=== PATIENT | female | born 1995 | race Caucasian/White ===

== ENCOUNTER 2018-07-20 21:10 | Emergency (ER) | payer OTHER ==
[2018-07-20] MEDS ORDERED: NS 1,000 ML IV ONE (21:40)
[2018-07-20] MEDS ORDERED: ONDANSETRON 4 MG/2 ML VIAL IVP ONE (21:40)
--- NOTE | 2018-07-20 21:40 | EDPHY ---
General Time Seen by Provider: 07/20/18 21:31 Narrative: CHIEF COMPLAINT: Abdominal pain HISTORY OF PRESENT ILLNESS: Patient presents by private vehicle with complaints of abdominal pain. She says the symptoms started around 12:00 p.m. Today. She points the epigastrium and periumbilical abdomen. She rates it as a mtvf-[id number]-imtdvwhp pain, currently 5 /10. Associated with nausea but no vomiting. She has 1 episode of diarrhea. She feels that her energy is very low. Her appetite is low. No fever chills. No urinary complaints. No chest pain, cough, shortness of breath, neck pain or stiffness, headache. She has no trauma or injury. She does have some mild pelvic discharge but denies any sexual activity since February. She had an IUD placed over a month ago. She has no other associated complaints or modifying factors. REVIEW OF SYSTEMS: 10 systems were reviewed and negative with the exception of the elements mentioned in the history of present illness. PCP: Located in [place] SPECIALISTS: None locally. Gynecology in [place] PAST MEDICAL HISTORY: Uncomplicated. PAST SURGICAL HISTORY: No surgical history SOCIAL HISTORY: Nonsmoker. Lives independently. Originally from [place] FAMILY HISTORY: Noncontributory EXAMINATION: Vitals: Triage VS reviewed General Appearance: Alert, no distress. Conversing in full sentences. Well appearing. Head: normocephalic, atraumatic Eyes: Pupils equal and round, no conjunctival pallor or injection ENT, Mouth: Mucous membranes moist. Airway patent Neck: Normal inspection, supple, non-tender Respiratory: Lungs are clear to auscultation Cardiovascular: Regular rate and rhythm. No murmur Gastrointestinal: Abdomen is soft and nondistended. Mild tenderness in the epigastrium with moderate tenderness to the periumbilical region. No tympany rigidity. No guarding. Negative obturator. Bowel sounds present all 4 quadrants. No palpable mass. No CVA tenderness. Neurological: A&O, nonfocal, normal gait Skin: Warm and dry, no rash Extremities: Nontender, no pedal edema Psychiatric: Mood and affect normal DIFFERENTIAL DIAGNOSES: Including but not limited to pancreatitis, gastritis, appendicitis, colitis, mesenteric adenitis MDM: 9:30 p.m. Acute abdominal pain at the 12:00 p.m. Today with tenderness in the periumbilical abdomen and mild tenderness in the epigastrium. No peritonitis at this time. She does have normal vital signs without any SIRS criteria. She is not actively vomiting. She is in no acute distress. IV has been established. I have ordered laboratory studies, IV fluid and nausea medication. She is declining pain medication at this time. 10:05 p.m. Laboratory studies reveal mild leukocytosis. LFTs normal. Lipase normal. I have re-evaluated the patient she still has moderate periumbilical tenderness. I do feel it is reasonable to proceed with CT scan abdomen pelvis. She has verbally consented to this. She still declines pain medication. 11:25 p.m. Case discussed with radiologist. We discussed the CT findings of the abdomen pelvis. No appendicitis. Patient has been re-evaluated. She says she is starting to feel better. We discussed the moderate constipation on the CT scan. We discussed ggoc-owz-hzgxcis remedies for this. We discussed ED precautions for any difficulty with bowel movements, fever, return of her abdominal pain, nausea or vomiting. At this time she says her pain is minimal and she would like to go home to try these remedies. I have answered all her questions and she is comfortable with discharge home. Discharged in stable condition SUPERVISION: This patient was independently evaluated without direct involvement of or examination by the attending physician. CONSULTATION: None - Diagnostics Imaging Results: Imaging Impressions Abdomen CT 07/20/18 22:01 Impression: Constipation. Normal appendix. Results discussed with Aaron Posada at 22:53 PM. General information for patients regarding this examination can be found at [email or web address]. If you have questions or comments about this report, please contact me at [phone] (hospital) or [phone] (cell). - History Smoking Status: Never smoked - Objective Vital Signs: Initial Vital Signs Temperature (C) 98.4 F 07/20/18 21:14 Heart Rate 82 07/20/18 21:14 Respiratory Rate 18 07/20/18 21:14 Blood Pressure 139/90 H 07/20/18 21:14 O2 Sat (%) 94 07/20/18 21:14 O2 Delivery Mode Room Air Allergies/Adverse Reactions: No Known Allergies Allergy (Unverified 07/20/18 21:13) Home Medications: Medication Instructions Recorded NK [No Known Home Meds] 07/20/18 Laboratory Results: Laboratory Results 07/20/18 21:34 07/20/18 21:34 07/20/18 07/20/18 07/20/18 21:45 21:34 21:34 WBC RBC Hgb Hct MCV MCH MCHC RDW Plt Count MPV Neut % (Auto) Lymph % (Auto) [place] % (Auto) Eos % (Auto) Baso % (Auto) Nucleat RBC Rel Count Absolute Neuts (auto) Absolute Lymphs (auto) Absolute Monos (auto) Absolute Eos (auto) Absolute Basos (auto) Absolute Nucleated RBC Immature Gran % Immature Gran # Sodium 137 mEq/L mEq/L (135-145) Potassium 3.8 mEq/L mEq/L (3.5-5.2) Chloride 105 mEq/L mEq/L (97-110) Carbon Dioxide 22 mEq/l mEq/l (22-31) Anion Gap 10 mEq/L mEq/L (6-14) BUN 11 mg/dL mg/dL (7-23) Creatinine 0.7 mg/dL mg/dL (0.6-1.0) Estimated GFR > 60 Glucose 140 mg/dL H mg/dL (70-100) Calcium 9.3 mg/dL mg/dL (8.5-10.4) Total Bilirubin 0.3 mg/dL mg/dL (0.1-1.4) Conjugated Bilirubin 0.1 mg/dL mg/dL (0.0-0.5) Unconjugated Bilirubin 0.2 mg/dL mg/dL (0.0-1.1) AST 20 IU/L IU/L (14-46) ALT 24 IU/L IU/L (9-52) Alkaline Phosphatase 63 IU/L IU/L (38-126) Total Protein 7.2 g/dL g/dL (6.3-8.2) Albumin 4.6 g/dL g/dL (3.5-5.0) Lipase 85 IU/L IU/L (23-300) Beta HCG, Qual NEGATIVE Urine Color YELLOW Urine Appearance HAZY Urine pH 6.0 (5.0-7.5) Ur Specific [place] 1.021 (1.002-1.030) Urine Protein NEGATIVE (NEGATIVE) Urine Ketones NEGATIVE (NEGATIVE) Urine Blood 2+ H (NEGATIVE) Urine Nitrate NEGATIVE (NEGATIVE) Urine Bilirubin NEGATIVE (NEGATIVE) Urine Urobilinogen NEGATIVE EU EU (0.2-1.0) Ur Leukocyte Esterase NEGATIVE (NEGATIVE) Urine RBC 1-3 /hpf /hpf (0-3) Urine WBC 1-3 /hpf /hpf (0-3) Ur Epithelial Cells TRACE /lpf /lpf (NONE-1+) Urine Mucus TRACE /lpf /lpf (NONE-1+) Urine Glucose NEGATIVE (NEGATIVE) 07/20/18 21:34 WBC 11.08 10^3/uL H 10^3/uL (3.80-9.50) RBC 4.56 10^6/uL 10^6/uL (4.18-5.33) Hgb 14.6 g/dL g/dL (12.6-16.3) Hct 42.6 % % (38.0-47.0) MCV 93.4 fL fL (81.5-99.8) MCH 32.0 pg pg (27.9-34.1) MCHC 34.3 g/dL g/dL (32.4-36.7) RDW 12.6 % % (11.5-15.2) Plt Count 332 10^3/uL 10^3/uL (150-400) MPV 9.2 fL fL (8.7-11.7) Neut % (Auto) 79.8 % H % (39.3-74.2) Lymph % (Auto) 13.1 % L % (15.0-45.0) [place] % (Auto) 6.2 % % (4.5-13.0) Eos % (Auto) 0.3 % L % (0.6-7.6) Baso % (Auto) 0.3 % % (0.3-1.7) Nucleat RBC Rel Count 0.0 % % (0.0-0.2) Absolute Neuts (auto) 8.85 10^3/uL H 10^3/uL (1.70-6.50) Absolute Lymphs (auto) 1.45 10^3/uL 10^3/uL (1.00-3.00) Absolute Monos (auto) 0.69 10^3/uL 10^3/uL (0.30-0.80) Absolute Eos (auto) 0.03 10^3/uL 10^3/uL (0.03-0.40) Absolute Basos (auto) 0.03 10^3/uL 10^3/uL (0.02-0.10) Absolute Nucleated RBC 0.00 10^3/uL 10^3/uL (0-0.01) Immature Gran % 0.3 % % (0.0-1.1) Immature Gran # 0.03 10^3/uL 10^3/uL (0.00-0.10) Sodium Potassium Chloride Carbon Dioxide Anion Gap BUN Creatinine Estimated GFR Glucose Calcium Total Bilirubin Conjugated Bilirubin Unconjugated Bilirubin AST ALT Alkaline Phosphatase Total Protein Albumin Lipase Beta HCG, Qual Urine Color Urine Appearance Urine pH Ur Specific [place] Urine Protein Urine Ketones Urine Blood Urine Nitrate Urine Bilirubin Urine Urobilinogen Ur Leukocyte Esterase Urine RBC Urine WBC Ur Epithelial Cells Urine Mucus Urine Glucose Medications Given: Discontinued Medications Sodium Chloride (Ns) 1,000 mls @ 0 mls/hr IV EDNOW ONE; Wide Open PRN Reason: Protocol Stop: 07/20/18 21:41 Last Admin: 07/20/18 21:47 Dose: 1,000 mls Ondansetron HCl (Zofran) 4 mg IVP EDNOW ONE Stop: 07/20/18 21:41 Last Admin: 07/20/18 21:47 Dose: 4 mg Departure - Departure Disposition: Home, Routine, Self-Care Clinical Impression: Constipation Qualifiers: Constipation type: unspecified constipation type Qualified Code(s): K59.00 - Constipation, unspecified Abdominal pain Qualifiers: Abdominal location: generalized Qualified Code(s): R10.84 - Generalized abdominal pain Condition: Good Instructions: Fleet Enema (ED), High Fiber Diet (ED), Constipation (DC), Polyethylene Glycol 3350 (By mouth) Additional Instructions: 1. Magnesium citrate [id number] x1 2. Fleet enema [id number] x1 3. Increase fluid intake 4. Consider daily MiraLax [id number] 1 packet 5. Consider daily jomg-ccs-nuktbqs Senna stool softener 6. ED precautions for any difficulty with bowel movement, nausea, vomiting, fever or increased abdominal pain Referrals: Mary Alvarez MD [Medical Doctor] - As per Instructions Physician,Emergency DeptMD [Medical Doctor] - As per Instructions
[2018-07-20 21:48] LABS: PLATELET COUNT 332 10^3/uL (150-400)
[2018-07-20] MEDS ORDERED: IOPAMIDOL (ISOVUE-300) 100 ML BTL ONE (22:09)
[2018-07-20 23:36] VITALS: BP 113/79
== END 2018-07-20 23:43 | disposition home or self-care (01) ==
DX: K59.00 Constipation, unspecified (principal); R11.0 Nausea; E86.9 Volume depletion, unspecified
CPT/HCPCS: 96374; J2405; Q9967